=== PATIENT | male | born 2000 | race Two or more races ===

== ENCOUNTER 2024-02-18 16:05 | Emergency (ER) | payer OTHER ==
[2024-02-18] MEDS: predniSONE 20 MG Tab PO ONE (17:34)
== END 2024-02-18 17:51 | disposition home or self-care (01) ==
LOC: JD.ED 16:05
DX: L50.9 Urticaria, unspecified (principal); Z88.0 Allergy status to penicillin
CPT/HCPCS: 99282; J7512; 99283